=== PATIENT | female | born 1980 | race African-American/Black ===

== ENCOUNTER 2019-01-10 10:39 | Inpatient (IN) | payer OTHER ==
[~2019-01-10] VITALS: Ht 167.6 cm; Wt 55.8 kg
--- NOTE | 2019-01-10 10:43 | NUR ---
PT BIBRA FROM HOME TO ER BED 15 C/O WEAKNESS FROM VAGINAL BLEEDING X 1 MONTH NOW. GOWNED AND PLACED ON MONITOR. STABLE VITALS AT THIS TIME. PT ADMITS TO BEEN DRINKING ETOH LAST NIGHT. AWAITING MD JACOBSEN.
--- NOTE | 2019-01-10 11:05 | NUR ---
DR MARRERO AT BEDSIDE FOR EVAL.
[2019-01-10] MEDS ORDERED: KETOROLAC TROMETHAMINE INJ 30 MG/ML VIAL IV ONE (11:30)
[2019-01-10] MEDS ORDERED: IV NS 0.9% 1,000 ML BAG IV ONE (11:30)
--- NOTE | 2019-01-10 11:50 | NUR ---
CHEF AT BEDSIDE FOR BLOOD DRAW.
[2019-01-10 11:54] LABS: BASOPHILS # (AUTO) 0.1 /CMM (0.0-0.2); BASOPHILS % (AUTO) 2.2 % (0.0-2.0); EOSINOPHILS % (AUTO) 18.3 % (0.0-6.0); LYMPHOCYTES # (AUTO) 1.1 /CMM (0.8-4.8); LYMPHOCYTES % (AUTO) 20.7 % (20.0-44.0); MEAN CORPUSCULAR HGB CONC 33 g/dl (31.0-36.0); MEAN CORPUSCULAR VOLUME 84 fL (82-100); MONOCYTES # (AUTO) 0.6 /CMM (0.1-1.30); MONOCYTES % (AUTO) 11.3 % (2.0-12.0); NEUTROPHILS # (AUTO) 2.6 /CMM (1.8-8.9); NEUTROPHILS % (AUTO) 47.5 % (43.0-81.0); PLATELET COUNT (AUTO) 227 /CMM (150-450); RED BLOOD CELL COUNT(AUTO) 2.06 MIL/uL (4.0-5.2); WHITE BLOOD COUNT (AUTO) 5.4 K/uL (4.3-11.0)
[2019-01-10 11:59] LABS: HEMATOCRIT 17 % (33-45); HEMOGLOBIN 5.7 g/dL (11.5-14.8)
[2019-01-10 12:02] LABS: CALCIUM, SERUM 7.2 mg/dL (8.5-10.1); CREATININE 0.5 mg/dL (0.6-1.3); POTASSIUM 2.9 mmol/L (3.5-5.1)
[2019-01-10] MEDS ORDERED: KETOROLAC TROMETHAMINE INJ 30 MG/ML VIAL ONE (12:15)
[2019-01-10] MEDS ORDERED: THIA100T88 PO (12:41)
[2019-01-10] MEDS ORDERED: FERR325T24 PO (12:41)
[2019-01-10] MEDS ORDERED: ASCO500T9 PO (12:41)
[2019-01-10] MEDS ORDERED: NALT50TA PO (12:41)
[2019-01-10] MEDS ORDERED: FURO20TA4 PO (12:41)
[2019-01-10] MEDS ORDERED: HYDR-500 PO (12:41)
[2019-01-10] MEDS ORDERED: POTA10TA15 PO (12:41)
[2019-01-10] MEDS ORDERED: CHOL200074 PO (12:41)
[2019-01-10 12:54] LABS: EOSINOPHILS % (MANUAL) 15 % (0-4); LYMPHOCYTES % (MANUAL) 21 % (16-48); MONOCYTES % (MANUAL) 13 % (0-11.0); NEUTROPHILS % (MANUAL) 51 (42-76)
--- NOTE | 2019-01-10 14:31 | NUR ---
REPORT GIVEN TO FORD WHITNEY FOR EDITH. AWAITING TRANSFER TO FLOOR.
--- NOTE | 2019-01-10 14:50 | NUR ---
CHAINSTITCH TUNNEL ELASTIC OPERATORTETRYL BOILING TUB OPERATOR NOTE RECEIVED PT FROM ER VIA HANNAH BARROW OF VAGINAL BLEEDING. PT IS SLEEPY BUT AROUSABLE TO VERBAL STIMULI, ALERT TO NAME, YEAR, PLACE, AND EVENT. VS OBTAINED PER PROTOCOL, PT PLACED ON COMMODITY BUYER AND IS SINUS RHYTHM, HR 96. PT GUARDED AND SELECTIVELY ANSWERING ADMISSION QUESTIONS. PT DENIES ANY TRAUMA/ATTACKS/EVENTS/ABUSE AT THIS TIME. PT ONLY STATING SHE "LIVES IN [place]" BUT IS NOT SPECIFIC ABOUT WHERE. PT DOES NOT WANT FULL SKIN ASSESSMENT AT THIS TIME. UNIT ORIENTATION INCLUDING USE OF CALL LIGHT SYSTEM COMPLETED PER PROTOCOL. BED IS LOCKED AND IN LOWEST POSITION, SIDE RAILS UP X2, BED ALARM ON, CALL LIGHT AND POSSESSIONS WITHIN REACH. AWAITING ADMISSION ORDERS FROM .
--- NOTE | 2019-01-10 14:54 | NUR ---
LAN/WAN ENGINEER NOTE INFORMED PT HAS ARRIVED AND PENDING ADMISSION ORDERS.
[2019-01-10] MEDS ORDERED: ONDANSETRON HCL/PF 4 MG/2 ML VIAL IVP PRN (15:00)
[2019-01-10] MEDS ORDERED: HYDROCODONE/APAP 5/325MG 1 EACH TABLET PO PRN (15:00)
[2019-01-10] MEDS ORDERED: MAGNESIUM HYDROXIDE 30 ML UDC PO PRN (15:00)
[2019-01-10] MEDS ORDERED: Z GUARD REMEDY 2 OZ OINT TP PRN (15:00)
[2019-01-10] MEDS ORDERED: POTASSIUM CHLORIDE 20 MEQ TAB.PRT.SR PO ONE ×2 (15:00→16:00)
[2019-01-10] MEDS ORDERED: ZOLPIDEM TARTRATE 5 MG TABLET PO PRN (15:00)
[2019-01-10] MEDS ORDERED: MAG HYDROX/AL HYDROX/SIMETH 30 ML UDC PO PRN (15:00)
--- NOTE | 2019-01-10 15:05 | NUR ---
RETAIL CASHIER NOTE SPOKE WITH SHIP SCALER, TYPE AND SCREEN AND CROSSMATCH STILL PENDING DUE TO ANTIBODIES, INFORMED THAT HGB IS 5.7 AND PT REQUIRES TRANSFUSION STAT. PER DECORATOR CONSULTANT SHE WILL CALL SOON READY.
[2019-01-10] MEDS: IV NS 0.9% 1,000 ML IV PRN (15:10)
--- NOTE | 2019-01-10 15:44 | NUR ---
INNOVATION MANAGER NOTE PT ONLY ALLOWING NURSE TO REVIEW BELONGINGS OF HER BLACK PURSE, REMOVED SEVERAL LIGHTERS AND A PACK OF CIGARETTES, PT STATES "DON'T WORRY, LEAVE IT" REGARDING OTHER BAGS AND DOES NOT WANT THE NURSE TO COMPLETE BELONGINGS CHECK AT THIS TIME. EDUCATION PROVIDED, PT STILL REFUSING, WILL ATTEMPT AT A LATER TIME.
[2019-01-10 16:00] VITALS: BP 104/55
[2019-01-10] MEDS ORDERED: diphenhydrAMINE HCL 50 MG CAPSULE PO ONE (16:00)
--- NOTE | 2019-01-10 16:01 | NUR ---
GREEN INSPECTOR NOTE CLARIFIED WITH HOW MANY UNITS TOTAL TO BE INFUSED ONCE READY, ONLY 1 ORDERED AT THIS TIME. PER INFUSE TOTAL OF 2 UNITS PRBC. VERIFIED VIA READ BACK AND CARRIED OUT.
--- NOTE | 2019-01-10 17:50 | NUR ---
LEARNING STRATEGIST NOTE PER FEATHER MIXER GEREMIAS, SHE SENT OUT A STAT REQUEST TO [facility] FOR 2 UNITS WHICH MUST BE REQUESTED THROUGH [facility] BECAUSE OF ANTIBODIES AND DUE TO PATIENT POSSIBLY BEING SICKLE CELL. INFORMED CHARGE NURSE, PT WITHIN BASELINE AT TIME TIME.
[2019-01-10] MEDS: ACETAMINOPHEN 325 MG TABLET PO PRN (17:56)
--- NOTE | 2019-01-10 18:13 | NUR ---
PAYROLL BENEFITS ADMINISTRATOR CLOSING NOTE PT IN BED, ALERT AND ORIENTED X4, MORE AWAKE AND COOPERATIVE AT THIS TIME. DENIES CHEST PAIN, SOB, N/V, BREATHING IS EVEN AND UNLABORED ON 4L NC. PT ON DATA CONTROL ASSISTANT AND IS CURRENTLY SINUS RHYTHM, HR 97 AT THIS TIME. RIGHT HAND #20G IS INFUSING NS @ 125ML/HR ORDERED WITHOUT REDNESS OR SWELLING. PT PENDING BLOOD TRANSFUSION OF 2UNIT PRBC , AWAITING DELIVERY FROM [facility] PER WAFER FABRICATION OPERATOR, PRIMARY HOSPITALIST AWARE. ALL NEEDS ATTENDED TO. BED IS LOCKED AND IN LOWEST POSITION, SIDE RAILS UP X2, BED ALARM ON, CALL LIGHT AND POSSESSIONS WITHIN REACH. WILL ENDORSE TO VETERANS SERVICE OFFICER NURSE FOR CONTINUITY OF CARE.
[2019-01-10] MEDS ORDERED: FUROSEMIDE 20 MG/2 ML VIAL IV ONE (19:00)
--- NOTE | 2019-01-10 19:15 | NUR ---
MICA MINER NOTES RECEIVED ON BED SLEEPING,AROUSABLE TO VERBAL STIMULI,NS AT 125ML/HR RATE IN PROGRESS ON RIGHT HAND #20 SALINE LOCK.FOR BLOOD TRANSFUSION OF 2 UNITS PRBC WITH H/H 5.11/21, AWAITING BLOOD FROM [facility].WILL MONITOR FOR ACTIVE VAGINAL BLEEDING.CALL LIGHT IN REACH,NEEDS ANTICIPATED.
[2019-01-10 20:15] VITALS: BP 81/36
--- NOTE | 2019-01-10 20:15 | NUR ---
POWERHOUSE MECHANIC SUPERVISOR NOTES SR-93 ON TELE MONITOR.REPORTED BY KULWANT ZHANG BLOOD PRESSURE DROPING TO 78/34 ON LEFT ARM,81/36 ON THE RIGHT ARM.
--- NOTE | 2019-01-10 20:25 | NUR ---
DISTRIBUTOR OF DIRECTORIES NOTES DOMINIQUE ACNP MADE AWARE OF PATIENT STATUS,WITH ORDER TO TRANSFER PATIENT TO [facility] FOR FURTHER MONITORING AND MANAGEMENT.CHARGE NURSE MADE AWARE,BLENDING COORDINATOR MADE AWARE.
--- NOTE | 2019-01-10 20:45 | NUR ---
SALON RECEPTIONIST NOTES REPORT GIVEN TO LILIA WHITNEY CHARGE [facility]
--- NOTE | 2019-01-10 21:00 | NUR ---
TOOL AND PRODUCTION PLANNER NOTES TRANSFERRED PATIENT TO [facility] VIA ACLS PROTOCOL.PATIENT RECEIVED BY KIKO WHITNEY FOR CONTINUITY OF CARE.
[2019-01-10] MEDS ORDERED: IV NS 0.9% 1,000 ML IV ONE (21:30)
--- NOTE | 2019-01-10 21:40 | NUR ---
2109 PATIENT CAME FROM [facility] VIA BED. BP WAS TAKEN 73/39. SPOKE TO MANN FROM BLOOD BANK FOR ETA OF BLOOD; IT WILL TAKE 1- 1.5 HRS SINCE IT WILL BE COMING FROM [facility] MD-IT. DOMINIQUE VELEZ NP MADE AWARE AND ASKED FOR BOLUS ORDER WHILE WAITING FOR BLOOD. ORDERED 1L BOLUS OF NS, CARRIED OUT. PRIMARY RNKIKO MADE AWARE 2139 ORDERED ANOTHER 2 UNITS OF PRBC. SPOKE TO DOMINIQUE TO VERIFY THAT SHE WANTS TOTAL OF 4 UNITS. PRIMARY RNKIKO NOTIFIED
--- NOTE | 2019-01-10 22:36 | NUR ---
RN NOTES BP AFTER 1LITER BOLUS IS 90/44 [facility] PATIENT IS ASKING FOR ALCOHOL WITHDRAWAL MEDICINE INFORMED RITA FOX CHEST PAIN COORDINATOR STATED THAT THE PATIENT SBP SHOULD BE >100 SO SHE CAN GIVE THE ORDER WHAT PATIENT REQUESTED. DOMINIQUE ORDER TO GIVE ANOTHER NS 500 ML BOLUS ONCE PATIENT INFORMED WILL RECHECKED BP AFTER NS 500ML BOLUS
[2019-01-10] MEDS ORDERED: IV NS 0.9% 500 ML IV ONE (23:00)
--- NOTE | 2019-01-10 23:15 | NUR ---
RN NOTES BLOOD IS READY AND THE PATIENT SILL INSIST ABOUT HER ALCOHOL WITHDRAWAL MEDICINE REPORTED TO DOMINIQUE ABOUT THE PATIENT REQUESTED. PATIENT SAID SHES NOT GONNA TAKE THE BLOOD TRANSFUSION UNTIL SHE GET THE MEDICINE, PER YUNG FOX. SHES NOT GONNA NEGOTIATE THE ATIVAN BECAUSE ITS CLINICALLY UNSAFE AND NOT NEGOTIABLE. HOGSHEAD MAT ASSEMBLER ORDER ANOTHER 1 LITER OF NS BOLUS NOTED AND CARRIED OUT ORDER.
[2019-01-10] MEDS ORDERED: IV NS 0.9% 1,000 ML IV STA (23:30)
--- NOTE | 2019-01-10 23:46 | NUR ---
RN NOTES DIAPER CHANGED PRESENT WITH SMALL AMOUNT OF BLOOD WITH LARGE URINE OUTPUT IN DIAPER. NO CHANGE OF MENTAL STATUS. CONTINUE TO EXPLAINED THE IMPORTANCE OF BLOOD TRANSFUSION TO HER BP SO SHE CAN GET HER MEDICINE FOR HER ALCOHOL WITHDRAWAL.
[2019-01-11] VITALS (13 sets, daily range): BP systolic 71–120; BP diastolic 34–70
[2019-01-11] MEDS: ACETAMINOPHEN 325 MG TABLET PO PRN ×2 (00:17→16:25)
[2019-01-11] MEDS ORDERED: diphenhydrAMINE HCL 25 MG CAPSULE PO ONE (00:30)
--- NOTE | 2019-01-11 00:41 | NUR ---
RN NOTES PATIENT FINALLY AGREED FOR BLOOD TRANSFUSION AFTER ENCOURAGING HER HOW MANY TIMES. BENADRYL 25 MG PO GIVEN BEFORE BLD. TRANSFUSION ORDERED BY DR. CARRIZALES. STARTED FIRST UNIT OF BLOOD. VS TAKEN TEMP. 98 BP 78/43 HR 94 SATURATION 100%. WILL CLOSELY MONITOR.
--- NOTE | 2019-01-11 01:15 | NUR ---
RN NOTES S/E BY DOMINIQUE JOCKEY ROOM CUSTODIAN AND SPOKE TO PATIENT REGARDING PATIENT REQUESTED ALCOHOL WITHDRAWAL MEDICINE. NO SIGNS OF ALCOHOL WITHDRAWAL JOCKEY ROOM CUSTODIAN EXPLAINED THE RISK FOR TAKING ATIVAN WHILE THE BP IS IN CRITICAL LOW. REPORTED THAT THE BP AT THIS TIME STILL ON 70'S OVER 30'S PER DOMINIQUE IF SBP DROPS LOWER THAN 70 WILL TRANSFER PATIENT TO ICU. AND TO CONTINUE IVF NS @ 125 ML/HR TOGETHTHER WITH BLOOD TRANSFUSION. WILL CLOSELY MONITOR.
--- NOTE | 2019-01-11 01:37 | NUR ---
0125 Enma Thapa in the unit; aware of 71/34 BP; wanted to ask blood bank about transfusing 2 units at the same time; also inquired about lasix order, to give after 2 units or 4 units; stated not to give lasix at all; if SBP drops to below 70 to transfer to ICU 0130 explained to her concern for fluid overload and possible reaction if 2 units transfusing at the same time; will have no way to know which unit patient is reacting to. Per Nohelia, to either put the blood in pressure bag and/or to transfuse as fast as possible. Primary RN, Cristin aware; carried out
[2019-01-11] MEDS ORDERED: LORAZEPAM INJ 2 MG/ML VIAL IV PRN (04:00)
[2019-01-11 04:24] LABS: BASOPHILS # (AUTO) 0.2 /CMM (0.0-0.2); BASOPHILS % (AUTO) 2.7 % (0.0-2.0); EOSINOPHILS % (AUTO) 11.5 % (0.0-6.0); HEMATOCRIT 25 % (33-45); HEMOGLOBIN 8.4 g/dL (11.5-14.8); LYMPHOCYTES # (AUTO) 0.9 /CMM (0.8-4.8); LYMPHOCYTES % (AUTO) 14.3 % (20.0-44.0); MEAN CORPUSCULAR HGB CONC 34 g/dl (31.0-36.0); MEAN CORPUSCULAR VOLUME 86 fL (82-100); MONOCYTES # (AUTO) 0.6 /CMM (0.1-1.30); MONOCYTES % (AUTO) 9.1 % (2.0-12.0); NEUTROPHILS # (AUTO) 4.1 /CMM (1.8-8.9); NEUTROPHILS % (AUTO) 62.4 % (43.0-81.0); PLATELET COUNT (AUTO) 193 /CMM (150-450); WHITE BLOOD COUNT (AUTO) 6.5 K/uL (4.3-11.0)
[2019-01-11 04:52] LABS: CALCIUM, SERUM 6.3 mg/dL (8.5-10.1); CREATININE 0.5 mg/dL (0.6-1.3); PHOSPHORUS 3.2 mg/dL (2.5-4.9); POTASSIUM 4.1 mmol/L (3.5-5.1)
[2019-01-11 05:20] LABS: MAGNESIUM 0.8 mg/dL (1.8-2.4)
--- NOTE | 2019-01-11 05:26 | NUR ---
RN NOTES 0518 HGB 8.4; WITH ORDER TO HOLD THE 2 UNITS PRBC IN BLOOD BANK, DO NOT TRANSFUSE. BLOOD BANK AND PRIMARY RN NOTIFIED 0520 Silvia BARAJAS FROM LAB RELAYED MAGNESIUM LEVEL OF 0.8 DOMINIQUE VELEZ NOTIFIED WITH ORDER TO REPLACE MAGNESIUM AND REPEAT LEVEL AT 1200. PRIMARY RN NOTIFIED. ORDERS ENTERED AND CARRIED OUT
[2019-01-11] MEDS ORDERED: MAGNESIUM OXIDE 400 MG TABLET PO SCH (05:30)
[2019-01-11] MEDS: Magnesium 1GM/D5W 100ML PREMIX 100 ML IV SCH ×4 (05:54→10:01)
[2019-01-11] MEDS ORDERED: MAGNESIUM OXIDE 400 MG TABLET PO ONE (06:00)
--- NOTE | 2019-01-11 10:46 | NUR ---
Social service consult requested by Dr. Granados for possible homelessness and alcohol abuse. Pt. is a 38 year old female who was admitted to [facility] for severe anemia. SW met with pt. bedside. Pt. is alert and oriented x 4. Pt. has her belongings bedside. Pt. appears disheveled. Pt. is guarded when answering questions. When asked where does she live? Pt. states she lives in [place]. SW further asks for the address. Pt. states, " I don't know the address, I go back and forth from my mom's house." Pt's emergency contact is her mother Pily Rodriguez . SW offered pt. longterm placement, in case she is homeless, however, pt. declined. Pt. states she has signed up with [facility] for housing, but there is a year long wait. Pt. receives food stamps and GR. When SW inquired about if she drinks alcohol? Pt. got defensive and stated, " why are you asking me this." SW informed pt. that she is trying to assess if she needs assistance with any resources etc. Pt. became less defensive and stated she drinks lots of vodka daily. Pt. denies drug use. SW asked pt. if she would like to attend an alcohol treatment program. Pt. declined. However, pt. did accept the following resources: [facility], women's longterm located at [address] ;[facility], [address] [place] [address] ; [facility] Homeless Resource Directory which includes food stamps, transitional housing, showers and hot meals etc; Mental Health clinics such as [facility] ; [facility] ; Health clinics;[facility] and Alcohol treatment centers such as [facility] [place], ; [facility] Substance Abuse Hotline and [facility] . Homeless Patient waiver form to be signed by the pt. upon discharge. Pt. might need a TPA card upon discharge.
[2019-01-11] MEDS: IV NS 0.9% 1,000 ML IV PRN ×2 (11:56→20:26)
[2019-01-11] MEDS: ENSURE ENLIVE CHOC 237 ML CAN PO SCH ×2 (13:59→17:41)
--- NOTE | 2019-01-11 18:59 | NUR ---
RN NOTE PT REMAINED STABLE, SON VISITED, PT CONSUMES ONLY 25-50% OF MEALS, NO HEAVY BLEEDING NOTED, ONLY SOME CLOTS IN THE DIAPER. URINE CLEAR. WILL ENDOSE TO AGRISCIENCE TECHNOLOGY INSTRUCTOR.
--- NOTE | 2019-01-11 20:59 | NUR ---
MS RN NOTES RECEIVED PT ON BED. A.O X 4. WITH SON AT BEDSIDE. ON ROOM AIR NO RESPIRATORY DISTRESS NOTED. IV ACCESS ON RIGHT HAND G20 WITH NS @ 125CC/HR , PATENT AND INTACT. NO VAGINAL BLEEDING NOTED UPON INITIAL ASSESSMENT. HEAD OF BED ELEVATED. SIDE RAILS UP. CALL LIGHT WITHIN REACH. BED ALARM ON. WILL CONT TO MONITOR PT CLOSELY.
[2019-01-12] MEDS: ACETAMINOPHEN 325 MG TABLET PO PRN ×4 (00:57→22:54)
[2019-01-12 04:00] VITALS: BP 98/49
--- NOTE | 2019-01-12 07:10 | NUR ---
MS RN OPENING NOTES RECEIVED BEDSIDE REPORT FROM PM NURSE. PT IN BED. A.O X 4. ON ROOM AIR NO RESPIRATORY DISTRESS NOTED. IV ACCESS ON RIGHT HAND G20 WITH NS @ 125CC/HR , PATENT AND INTACT. HEAD OF BED ELEVATED. SIDE RAILS X3. CALL LIGHT WITHIN REACH. BED ALARM ON. WILL CONT TO MONITOR .
[2019-01-12 07:19] LABS: CALCIUM, SERUM 7.2 mg/dL (8.5-10.1); CREATININE 0.7 mg/dL (0.6-1.3); MAGNESIUM 1.8 mg/dL (1.8-2.4); PHOSPHORUS 1.2 mg/dL (2.5-4.9); POTASSIUM 3.6 mmol/L (3.5-5.1)
--- NOTE | 2019-01-12 07:25 | NUR ---
MS RN NOTES NO ACUTE CHANGES NOTED DURING THE SHIFT. NO ACTIVE BLEEDING NOTED. BLOOD PRESSURE WNL. WILL ENDORSE TO THE AM NURSE FOR CONTINUITY OF CARE.
[2019-01-12 08:00] VITALS: BP 93/55
[2019-01-12] MEDS: ENSURE ENLIVE CHOC 237 ML CAN PO SCH ×3 (08:27→17:11)
[2019-01-12] MEDS: IV NS 0.9% 1,000 ML IV PRN (08:32)
[2019-01-12] MEDS ORDERED: K PHOS NEUTRAL 250 MG TABLET PO ONE (11:30)
[2019-01-12 11:47] LABS: BASOPHILS # (AUTO) 0.1 /CMM (0.0-0.2); BASOPHILS % (AUTO) 1.6 % (0.0-2.0); EOSINOPHILS % (AUTO) 14.5 % (0.0-6.0); HEMATOCRIT 25 % (33-45); HEMOGLOBIN 8.5 g/dL (11.5-14.8); LYMPHOCYTES # (AUTO) 0.9 /CMM (0.8-4.8); LYMPHOCYTES % (AUTO) 16.3 % (20.0-44.0); MEAN CORPUSCULAR HGB CONC 34 g/dl (31.0-36.0); MEAN CORPUSCULAR VOLUME 86 fL (82-100); MONOCYTES # (AUTO) 0.4 /CMM (0.1-1.30); NEUTROPHILS # (AUTO) 3.2 /CMM (1.8-8.9); NEUTROPHILS % (AUTO) 59.6 % (43.0-81.0); PLATELET COUNT (AUTO) 236 /CMM (150-450); RED BLOOD CELL COUNT(AUTO) 2.97 MIL/uL (4.0-5.2); WHITE BLOOD COUNT (AUTO) 5.3 K/uL (4.3-11.0)
--- NOTE | 2019-01-12 11:57 | NUR ---
MS RN NOTE SEEN BY ,UPDATED ABOUT PATIENT CONDITION WITH LABS.GOT NEW ORDERS,MADE AWARE ABOUT MED RECON NOT DONE .WILL CONTINUE TO MONITOR.MILD VAGINAL BLEEDING NOTED.
--- NOTE | 2019-01-12 12:25 | NUR ---
MS RN NOTE GOT NEW ORDER FROM TO D/C IVF.MADE AWARE ABOUT BLOOD PRESSURE IN 90'S.OK TO D/C IVF.WILL CONTINUE TO MONITOR.
[2019-01-12 16:00] VITALS: BP 96/64
--- NOTE | 2019-01-12 17:17 | NUR ---
MS RN NOTE TYLENOL FELL ON THE FLOOR BY ACCIDENT ,DISCARDED AND GOT NEW ONE FROM [facility].
[2019-01-12] MEDS ORDERED: BENZOCAINE DENTAL GEL 7.5% 9.9 GM TUBE MM PRN ×2 (19:00→20:00)
--- NOTE | 2019-01-12 19:10 | NUR ---
MS RN CLOSING NOTES PT IN BED. A.O X 4. ON ROOM AIR .NO RESPIRATORY DISTRESS NOTED. IV ACCESS ON RIGHT HAND G20 PATENT AND INTACT. HEAD OF BED ELEVATED. SIDE RAILS X3. CALL LIGHT WITHIN REACH. BED ALARM ON. GOT NEW ORDER FOR ORAGEL FOR C/O TOOTH ACHE.BEDSIDE REPORT GIVEN TO PM NURSE FOR EDITH.
--- NOTE | 2019-01-12 19:30 | NUR ---
RN OPENING NOTES RECEIVED PATIENT A/O X4 PATIENT SHOWS NO SIGNS OF DISTRESS. ON ROOM AIR AND NO SOB. IV IS PATENT AND FLUSHES WELL WITH A #18 GAUGE. PATIENT IS COMFORTABLE WITH NO SIGNS OF FACIAL GRIMACING. SKIN IS INTACT PATIENT IS AMBULATORY WITH ASSISTANCE. PATIENT IS WAITING ON GEL FOR TOOTH PAIN TO BE ABLE TO EAT. ALL SAFETY MEASURES HAVE BEEN APPLIED. SIDE RAILS UP X2, CALL LIGHT WITHIN IN REACH. WILL CONTINUE TO MONITOR.
[2019-01-12 20:00] VITALS: BP 111/59
--- NOTE | 2019-01-12 20:57 | NUR ---
ms rn notes pt requesting oragel. medication no available in night locker. offered sublette pt refused.
[2019-01-13 04:00] VITALS: BP 96/53
[2019-01-13 06:28] LABS: BASOPHILS % (AUTO) 0.9 % (0.0-2.0); EOSINOPHILS % (AUTO) 12.5 % (0.0-6.0); HEMATOCRIT 25 % (33-45); HEMOGLOBIN 8.2 g/dL (11.5-14.8); LYMPHOCYTES # (AUTO) 0.8 /CMM (0.8-4.8); LYMPHOCYTES % (AUTO) 16.1 % (20.0-44.0); MEAN CORPUSCULAR HGB CONC 33 g/dl (31.0-36.0); MEAN CORPUSCULAR VOLUME 86 fL (82-100); MONOCYTES # (AUTO) 0.4 /CMM (0.1-1.30); MONOCYTES % (AUTO) 8.6 % (2.0-12.0); NEUTROPHILS # (AUTO) 3.2 /CMM (1.8-8.9); NEUTROPHILS % (AUTO) 61.9 % (43.0-81.0); PLATELET COUNT (AUTO) 257 /CMM (150-450); RED BLOOD CELL COUNT(AUTO) 2.91 MIL/uL (4.0-5.2); WHITE BLOOD COUNT (AUTO) 5.2 K/uL (4.3-11.0)
[2019-01-13 06:34] LABS: CALCIUM, SERUM 7.8 mg/dL (8.5-10.1); CREATININE 0.6 mg/dL (0.6-1.3); POTASSIUM 3.4 mmol/L (3.5-5.1)
[2019-01-13 06:40] LABS: ALBUMIN 1.9 g/dL (3.4-5.0); BILIRUBIN,DIRECT 1.6 mg/dL (0.0-0.2); BILIRUBIN,TOTAL 2.2 mg/dL (0.2-1.0); PHOSPHORUS 1.6 mg/dL (2.5-4.9); TOTAL PROTEIN, SERUM 5.1 g/dL (6.4-8.2)
--- NOTE | 2019-01-13 07:11 | NUR ---
MS RN CLOSING NOTES PATIENT ASLEEP IN BED WITH NO SIGNS OF DISTRESS OR ANY PAIN EXCEPT THE TOOTH PAIN. ADVISED AM NURSE ABOUT GEL FOR THE TOOTH PAIN. ENDORSED TO AM NURSE.
--- NOTE | 2019-01-13 07:17 | NUR ---
TD RN CLOSING NOTES PATIENT IS ASLEEP IN BED NO SIGNS OF DISTRESS OR ANY PAIN AND NO COMPLAINTS OF ANY SOB. ALL SAFETY PRECAUTIONS ARE APPLIED BED LOW, SIDE RAILS UP X3, AND CALL LIGHT WITHIN REACH. ENDORSED TO AM NURSE.
--- NOTE | 2019-01-13 07:24 | NUR ---
MS RN NOTES NO ACTIVE BLEEDING NOTED THROUGHOUT THE SHIFT. NO RESPIRATORY DISTRESS NOTED. WILL ENDORSE TO AM NURSE FOR CONTINUITY OF CARE.
[2019-01-13 08:00] VITALS: BP_SYST 104; BP_SYST 106; BP_DIAS 63
[2019-01-13] MEDS ORDERED: BENZOCAINE DENTAL GEL 7 GM TUBE MM PRN (08:00)
[2019-01-13] MEDS: ENSURE ENLIVE CHOC 237 ML CAN PO SCH ×2 (09:29→12:44)
[2019-01-13] MEDS ORDERED: POTASSIUM CHLORIDE 20 MEQ TAB.PRT.SR PO SCH (10:00)
--- NOTE | 2019-01-13 10:11 | NUR ---
MS RN NOTES (OPENING) RECEIVED PATIENT SITTING IN BED, A/O X4 PATIENT WITH NO SIGNS OF DISTRESS. PT ON ROOM AIR AND NO SOB NOTED . IV ON RIGHT HAND IS PATENT, FLUSHED LINE WELL PATENT. SKIN IS INTACT. PATIENT IS ABLE TO AMBULATE BY HER SELF WITH ASSISTANCE. ALL SAFETY MEASURES OBSERVED. SIDE RAILS UP X2, CALL LIGHT WITHIN IN REACH. WILL CONTINUE TO MONITOR.
[2019-01-13] MEDS ORDERED: K PHOS NEUTRAL 250 MG TABLET PO ONE (11:00)
--- NOTE | 2019-01-13 12:15 | NUR ---
RN MS NOTES HOSPITALIST DR CARRIZALES AT BED SIDE. AWARE OF PT LAB RESULTS. STATED SHE WILL BE DISCHARGED TODAY. PT WILL FOLLOW UP WITH GENERAL EDUCATION INSTRUCTOR AND PRIMARY PHYSICIAN.
--- NOTE | 2019-01-13 13:36 | NUR ---
MS RN NOTES PT MOTHER AT BEDSIDE AND TOOK PT TO [facility] FOR 15 MINUTES [id number] TO [id number] BY WHEELCHAIR.
--- NOTE | 2019-01-13 15:37 | NUR ---
MS RN NOTES CALLED PT`S MOTHER ELI VILLA AND INFORMED HER ABOUT PT DISCHARGE. PT` SMOTHER STATED SHE WILL PICK HER DAUGHTER IN ABOUT 2-3 HOURS.
[2019-01-13 16:00] VITALS: BP 110/72
== END 2019-01-13 17:00 | disposition home or self-care (01) | DRG 532 ==
LOC: ER 10:44 → TELE 14:31 → TELE-TD 21:03 → MEDSG1 01-11 10:54
PROVIDERS: ADMIT Internal Medicine; ATTEND Internal Medicine
PROC: 30233N1 Transfusion of Nonautologous Red Blood Cells into Peripheral Vein, Percutaneous Approach (ICD-10-PCS; principal; 2019-01-11)
DX: N93.9 Abnormal uterine and vaginal bleeding, unspecified (principal); D68.9 Coagulation defect, unspecified; D64.9 Anemia, unspecified; Z79.899 Other long term (current) drug therapy; D57.3 Sickle-cell trait; F10.20 Alcohol dependence, uncomplicated; E87.6 Hypokalemia; Z98.890 Other specified postprocedural states; G89.4 Chronic pain syndrome; E87.1 Hypo-osmolality and hyponatremia; Z83.2 Family history of diseases of the blood and blood-forming organs and certain disorders involving the immune mechanism; Z99.3 Dependence on wheelchair; E83.39 Other disorders of phosphorus metabolism; M19.90 Unspecified osteoarthritis, unspecified site
CPT/HCPCS: 36415; 76856-TC; 80048-TC; 80061-TC; 80076-TC; 82962-TC; 83735-TC; 84100-TC; 84702-TC; 85025-TC; 85660; 85730-TC; 86850-TC; 86921-TC; 87081-TC; 97116-TC; 97530-TC; G0378; G0480; J1885; J3475; J7030; J7040; J7050; P9016-BL; Q0163